=== PATIENT | female | born 1990 | race Caucasian/White ===

== ENCOUNTER 2016-05-03 08:08 | Emergency (ER) | payer BC ==
[2016-05-03 08:32] VITALS: BP 123/60
[2016-05-03] MEDS ORDERED: Ondansetron ODT TAB* 4 MG PO ONE (08:38)
--- NOTE | 2016-05-03 08:55 | UC ---
FLU HPI - HPI Summary HPI Summary: 3-4 days ago started getting chills, ST, nasal congestion, mild cough, back/neck /headache. 2 days ago had 4 episodes of diarrhea which completely resolved with pepto bismol. Yesterday marked increase in nausea with no appetite, and 3 episodes of vomiting so far this morning. Reports hx of having strep without marked ST in past. - History of Current Complaint Chief Complaint: UCGeneralIllness Stated Complaint: CHILLS,BACK ACHE,HEADACHE,ETC Time Seen by Provider: 05/03/16 08:30 Hx Obtained From: Patient Hx Last Menstrual Period: 03/30/16 ?: No Onset/Duration: Gradual Onset, Lasting Days Severity Currently: Moderate Severity Initially: Mild Associated Signs & Symptoms: Positive: Fever - pt thinks first 3 days of illness , did not take temp, Cough, Sore Throat, Nasal Congestion, Headache, Vomiting, Diarrhea - Allergy/Home Medications Allergies/Adverse Reactions: Allergies Allergy/AdvReac Type Severity Reaction Status Date / Time Cefaclor [From Ceclor] Allergy "I turned Verified 05/03/16 08:19 [place] when I was a baby and couldn't breathe." Eggs or Egg-derived Products Allergy Hives Verified 05/03/16 08:19 Flu Virus Vaccine Allergy Hives Verified 05/03/16 08:19 Seasonal Allergy Sneezing Uncoded 05/03/16 08:19 and Hives Home Medications: Home Medications Bismuth Subsalicylate [Pepto-Bismol] 524 mg PO ONCE 05/03/16 [History Confirmed 05/03/16] Ibuprofen TAB* [Advil TAB*] 800 mg PO Q6H PRN 05/03/16 [History Confirmed ] Loperamide LIQ* [Imodium LIQ*] 2 mg PO ONCE 05/03/16 [History Confirmed 05/03/16 ] Norgestrel & Ethinyl Estradiol [Cryselle-28 0.3-30 mg-Mcg] 1 tab PO DAILY [History Confirmed 05/03/16] Phenylephrine-Chlorpheniramine [Shelia-[place] Plus Cold & 5-2-10-325 mg] 2 cap PO Q4H PRN 05/03/16 [History Confirmed 05/03/16] PMH/Surg Hx/FS Hx/Imm Hx Previously Healthy: Yes - Surgical History Surgical History: None - Family History Known Family History: Negative: Blood Disorder - Social History Occupation: Employed Full-time - [employer] Lives: With Family Alcohol Use: Occasionally Substance Use Type: None Smoking Status (MU): Never Smoked Tobacco - Immunization History Most Recent Influenza Vaccination: Not the Season Review of Systems Constitutional: Chills, Fatigue Skin: Negative Eyes: Negative ENT: Sore Throat, Nasal Discharge Respiratory: Cough Cardiovascular: Negative Gastrointestinal: Vomiting, Diarrhea Genitourinary: Negative Motor: Negative Neurovascular: Negative Musculoskeletal: Negative Neurological: Negative Psychological: Negative All Other Systems Reviewed And Are Negative: Yes Physical Exam Triage Information Reviewed: Yes Appearance: No Pain Distress, Well-Nourished Vital Signs: Initial Vital Signs Temp 98.3 F 05/03/16 08:14 Pulse 86 05/03/16 08:14 Resp 16 05/03/16 08:14 BP 123/60 05/03/16 08:14 Pulse Ox 100 05/03/16 08:14 Vital Signs Reviewed: Yes Eye Exam: Normal Eyes: Positive: Conjunctiva Clear ENT: Positive: Hearing grossly normal, Nasal congestion - mild, TMs normal. Negative: Pharyngeal erythema, Tonsillar swelling, Tonsillar exudate Dental Exam: Normal Neck exam: Normal Neck: Positive: Supple, Nontender, No Lymphadenopathy Respiratory Exam: Normal Respiratory: Positive: Chest non-tender, Lungs clear, Normal breath sounds, No respiratory distress, No accessory muscle use Cardiovascular Exam: Normal Cardiovascular: Positive: RRR, No Murmur Musculoskeletal Exam: Normal Neurological Exam: Normal Psychological Exam: Normal Skin Exam: Normal Flu Course/Dx - Differential Dx/Diagnosis Provider Diagnoses: Viral syndrome Discharge - Discharge Plan Condition: Stable Disposition: HOME Prescriptions: Ondansetron TAB* [Zofran 4 MG Tab*] 4 mg PO Q6H PRN #6 tab PRN Reason: Vomiting Patient Education Materials: Viral Syndrome (ED) Forms: *Work Release Additional Instructions: Call or return if you develop increasing fever, shortness of breath, chest pain , bloody sputum, or otherwise worsen. If you have not improved at all after several days, contact your primary care physician or return here.
== END 2016-05-03 09:08 | disposition home or self-care (01) ==
LOC: UCCORT 08:08
DX: B34.9 Viral infection, unspecified (principal); Z88.1 Allergy status to other antibiotic agents
CPT/HCPCS: 87651; 99212; A9270-GY; G0463